=== PATIENT | female | born 1985 | race Caucasian/White ===

== ENCOUNTER 2018-02-02 18:51 | Inpatient (IN) | payer OTHER ==
[2018-02-02] MEDS: HYDROmorphONE 1 MG/ML SYG IV (20:45)
[2018-02-02] MEDS: DEXTROSE 5%-0.45% NACL 1,000 ML IV (20:45)
[2018-02-03] MEDS ORDERED: ONDANSETRON 4 MG INJ IV ×2 (05:00→18:30)
[2018-02-03] MEDS ORDERED: NACL 0.9% 3 ML SYG IV (05:00)
[2018-02-03 05:57] LABS: ADD MAN DIFF? NO
[2018-02-03] MEDS: DEXTROSE 5%-0.45% NACL 1,000 ML IV ×3 (06:00→16:00)
[2018-02-03 06:05] LABS: BASOPHILS % 0.2 % (0.0-2.0); EOSINOPHILS # 0.1 10^3/ul (0.0-0.5); EOSINOPHILS % 3.1 % (0.0-7.0); HEMATOCRIT 34.8 % (37.0-47.0); HEMOGLOBIN 11.7 g/dl (12.0-16.0); LYMPHOCYTES # 1.3 10^3/ul (0.8-2.9); LYMPHOCYTES % 29.2 % (15.0-51.0); MEAN CORPUSCULAR HEMOGLOBIN 29.9 pg (29.0-33.0); MEAN CORPUSCULAR HGB CONC 33.6 g/dl (32.0-37.0); MONOCYTE # 0.4 10^3/ul (0.3-0.9); MONOCYTES % 8.6 % (0.0-11.0); NEUTROPHIL # 2.7 10^3/ul (1.6-7.5); NEUTROPHILS % 58.5 % (39.0-77.0); PLATELET COUNT 161 10^3/UL (140-415); RED BLOOD COUNT 3.91 10^6/ul (4.20-5.40); RED CELL DISTRIBUTION WIDTH 12.2 % (11.5-14.5)
[2018-02-03 06:05] LABS: WHITE BLOOD COUNT 4.6 10^3/ul (4.8-10.8)
[2018-02-03 06:31] LABS: LIPASE 410 U/L (23-300)
[2018-02-03 06:31] LABS: ALANINE AMINOTRANSFERASE 284 IU/L (13-69); ALBUMIN/GLOBULIN RATIO 1.15; ALKALINE PHOSPHATASE 108 IU/L (42-121); ANION GAP 9 (5-13); ASPARTATE AMINO TRANSFERASE 188 IU/L (15-46); BILIRUBIN,INDIRECT 0.8 mg/dl (0-1.1); BILIRUBIN,TOTAL 0.8 mg/dl (0.2-1.3); BLOOD UREA NITROGEN 17 mg/dl (7-20); CALCIUM 7.9 mg/dl (8.4-10.2); CARBON DIOXIDE 26 mmol/L (21-31); CHLORIDE 106 mmol/L (97-110); CREATININE 0.59 mg/dl (0.44-1.00); Estimated GFR > 60 mL/min (>60); GLUCOSE 92 mg/dl (70-220); POTASSIUM 3.2 mmol/L (3.5-5.1); SODIUM 141 mmol/L (135-144); TOTAL PROTEIN 5.6 g/dl (6.1-8.1)
[2018-02-03] MEDS ORDERED: AL HYDROX/MG HYDROX/SIMETH 30 ML CUP PO (18:30)
[2018-02-03] MEDS ORDERED: POTASSIUM CHLORIDE 100 ML IVPB (19:30)
[2018-02-03 20:58] LABS: ADD UMIC NO; UR ASCORBIC ACID NEGATIVE (NEGATIVE); UR BILIRUBIN (Dip) NEGATIVE (NEGATIVE); UR BLOOD (Dip) NEGATIVE (NEGATIVE); UR CLARITY CLEAR (CLEAR); UR COLOR YELLOW (YELLOW); UR GLUCOSE (Dip) NEGATIVE (NEGATIVE); UR KETONES (Dip) TRACE mg/dL (NEGATIVE); UR LEUKOCYTE ESTERASE (Dip) NEGATIVE Leu/ul (NEGATIVE); UR NITRITE (Dip) NEGATIVE (NEGATIVE); UR TOTAL PROTEIN (Dip) NEGATIVE (NEGATIVE); UR UROBILINOGEN (Dip) 2+ mg/dL (NEGATIVE)
[2018-02-03] MEDS ORDERED: FAMOTIDINE 20 MG INJ IV (21:00)
[2018-02-05] MEDS ORDERED: ENOXAPARIN 40 MG/0.4 ML SYG SC (09:00)
== END 2018-02-03 19:15 | disposition left against medical advice (07) | DRG 392 ==
LOC: PP2 18:51
DX: R10.9 Unspecified abdominal pain (principal); Z90.49 Acquired absence of other specified parts of digestive tract; R11.2 Nausea with vomiting, unspecified; R19.7 Diarrhea, unspecified; Z72.0 Tobacco use; R51 Headache; Z90.710 Acquired absence of both cervix and uterus; D64.9 Anemia, unspecified
CPT/HCPCS: 74181; 80053; 81003; 83690; 85025; 90686